=== PATIENT | female | born 1960 | race Caucasian/White ===

== ENCOUNTER 2017-07-08 14:35 | Observation (INO) | payer BC ==
[2017-07-08] MEDS ORDERED: DiphenhydrAMINE 50 mg/ml Inj ONE ×2 (15:03→17:43)
[2017-07-08] MEDS ORDERED: Albuterol 0.083% Inhal Sol (2.5 mg/3 mL) UD ONE (15:13)
[2017-07-08] MEDS ORDERED: DiphenhydrAMINE 50 mg/ml Inj IV STA ×2 (15:15→17:42)
[2017-07-08] MEDS ORDERED: Albuterol 0.083% Inhal Sol (2.5 mg/3 mL) UD INH ONE ×2 (15:15→17:20)
[2017-07-08 15:41] LABS: BASO % 0.4 % (0.0-2.0); EOS # 0.2 K/uL (0.0-0.7); EOS % 2.6 % (0.0-4.0); HEMATOCRIT 44.9 % (34.0-47.0); LYMPH # 2.8 K/uL (1.0-4.3); LYMPH % 29.8 % (20.0-40.0); MEAN CELL VOLUME 87.8 fl (81.0-99.0); MEAN CORPUSCULAR HEMOGLOBIN 29.9 pg (27.0-31.0); MONO # 0.7 K/uL (0.0-0.8); MONO % 7.7 % (0.0-10.0); NEUT # 5.6 K/uL (1.8-7.0); NEUT % 59.5 % (50.0-75.0); NRBC % 0.1 % (0.0-0.0); RED CELL DISTRIBUTION WIDTH 13.3 % (11.5-14.5); WHITE BLOOD COUNT 9.4 K/uL (4.8-10.8)
[2017-07-08 15:54] LABS: ALB/GLOB RATIO 1.1 (1.0-2.1); ALKALINE PHOSPHATASE 206 U/L (38-126); ALT/SGPT 67 U/L (9-52); AST/SGOT 48 U/L (14-36); BILIRUBIN,TOTAL 0.6 mg/dl (0.2-1.3); BLOOD UREA NITROGEN 15 mg/dl (7-17); CALCIUM 9.2 mg/dL (8.4-10.2); CARBON DIOXIDE 26 mmol/L (22-30); CHLORIDE 90 mmol/L (98-107); GFR AFRICAN-AMERICAN > 60; POTASSIUM 4.7 MMOL/L (3.6-5.0); SODIUM 128 mmol/l (132-148); TOTAL PROTEIN 8.4 G/DL (6.3-8.2)
[2017-07-08 16:09] LABS: GLUCOSE,RANDOM 461 mg/dL (65-105)
[2017-07-08] MEDS ORDERED: Sodium Chloride 0.9% 1,000 ML IV STA (16:32)
[2017-07-08] MEDS ORDERED: Insulin Regular 100 units/ml IVP ONE ×2 (16:32→19:13)
--- NOTE | 2017-07-08 17:12 | RAD ---
HISTORY: cough COMPARISON: No prior. TECHNIQUE: Chest PA and lateral FINDINGS: LUNGS: No active pulmonary disease. PLEURA: No significant pleural effusion identified. No pneumothorax apparent. CARDIOVASCULAR: Normal. OSSEOUS STRUCTURES: No significant abnormalities. VISUALIZED UPPER ABDOMEN: Normal. OTHER FINDINGS: None. IMPRESSION: No acute cardiopulmonary disease appreciated.
--- NOTE | 2017-07-08 17:43 | ED PDOC ---
HPI: Allergic Reaction Time Seen by Provider: 07/08/17 15:09 Chief Complaint (Nursing): Abnormal Skin Integrity Chief Complaint (Provider): rash, shortness of breath History Per: Patient History/Exam Limitations: no limitations Onset/Duration Of Symptoms: Hrs (2) Current Symptoms Are (Timing): Still Present Possible Cause: Medication Associated Symptoms: Skin Rash, Dyspnea, Trouble Swallowing, Dizziness, Itching Home/EMS Treatment: None Severity: Moderate Additional Complaint(s): 57yo female states saw PMD on wednesday for cough and bronchitis symptoms, Rx combivent and augmentin. She started combivent without issue, today took augmentin for first time and about an hour later developed rash, shortness of breath and worsening wheeze, discomfort, feeling of mild throat swelling but no change in voice or inability to swallow. Past Medical History Vital Signs: Last Vital Signs Temp 98.8 F 07/08/17 16:33 Pulse 99 H 07/08/17 16:33 Resp 16 07/08/17 16:33 BP 103/59 L 07/08/17 16:33 Pulse Ox 97 07/08/17 16:08 - Medical History PMH: Anxiety, Asthma, Diabetes (Type II), Mitral Valve Prolapse, Pneumonia Denies: HTN - Surgical History Surgical History: (x3) - Family History Family History: Denies: Diabetes - Immunization History Hx Tetanus Toxoid Vaccination: Yes Hx Influenza Vaccination: No Hx Pneumococcal Vaccination: No - Home Medications Home Medications: Ambulatory Orders Medication Instructions Recorded Ciprofloxacin HCl [Cipro] 500 mg PO Q12H 07/04/15 Clindamycin [Cleocin] 300 mg PO TID #21 cap 07/04/15 Insulin Aspart, Recombinant 15 unit SC AC 07/04/15 [Novolog] Insulin Detemir [Levemir] 10 unit SC HS 07/04/15 Metoprolol Tartrate [Lopressor] 50 mg PO HS 07/04/15 Oseltamivir Phosphate [Tamiflu] 75 mg PO BID #10 cap 07/04/15 Venlafaxine [Effexor XR] 75 mg PO HS 07/04/15 - Allergies Allergies/Adverse Reactions: Allergies Allergy/AdvReac Type Severity Reaction Status Date / Time amoxicillin [From Augmentin] Allergy Verified 07/08/17 17:52 clavulanic acid Allergy Verified 07/08/17 17:52 [From Augmentin] iodine Allergy ANAPHYLAXIS Verified 07/08/17 15:12 Sulfa (Sulfonamide Allergy URTICARIA Verified 07/08/17 15:12 Antibiotics) clarithromycin AdvReac RASH Verified 07/08/17 15:12 methylprednisolone AdvReac Verified 07/08/17 15:27 [From Medrol] seafood Allergy ANAPHYLAXIS Uncoded 07/08/17 15:12 Physical Exam - Reviewed Nursing Documentation Reviewed: Yes Vital Signs Reviewed: Yes - Physical Exam Appears: Positive for: Uncomfortable Head Exam: Positive for: ATRAUMATIC, NORMAL INSPECTION, NORMOCEPHALIC Skin: Positive for: Warm, Rash (diffuse erythematous rash to face/neck/chest). Negative for: Jaundice, Cyanosis Eye Exam: Positive for: EOMI, Normal appearance, PERRL ENT: Positive for: Normal ENT Inspection Neck: Positive for: Normal, Painless ROM Cardiovascular/Chest: Positive for: Tachycardia Respiratory: Positive for: Decreased Breath Sounds, Wheezing. Negative for: Respiratory Distress Gastrointestinal/Abdominal: Positive for: Bowel Sounds, Soft. Negative for: Tenderness Back: Positive for: Normal Inspection Extremity: Positive for: Normal ROM. Negative for: Tenderness, Swelling Neurologic/Psych: Positive for: Alert, Oriented. Negative for: Motor/Sensory Deficits - Laboratory Results Result Diagrams: 07/08/17 15:34 07/08/17 15:34 - ECG ECG: Positive for: Interpreted By Me ECG Rhythm: Positive for: Nonspecific Changes Rate: 99 O2 Sat by Pulse Oximetry: 97 Pulse Ox Interpretation: Normal - Radiology X-Ray: Read By Radiologist X-Ray Interpretation: No Acute Disease - Progress ED Course And Treament: Patient stated prior bad reaction to steroids- developed paranoia and sleeplessness, she wants to avoid steroids currently. labs, CXR ordered. Benadryl 50mg, pepcid 20mg and IVF ordered Pt found to be hyperglycemic, insulin therapy initiated, IVF continued 540p remains w itch and rash, lungs w mild wheeze Will admit Dr Phelps given persistent symptoms, failure to improve in ED and inability to use steroids due to prior adverse reaction. - Critical Care Total Time (In Min): 45 Comments: pt required immediate and repeat bedside attention due to acute allergic reaction, SOB and resp distress Disposition - Clinical Impression Clinical Impression: Hyperglycemia, Acute allergic reaction, Asthma exacerbation - Patient ED Disposition Is Patient to be Admitted: Yes Counseled Patient/Family Regarding: Studies Performed, Diagnosis - Disposition Disposition Time: 17:20 Condition: STABLE - Pt Status Changed To: Hospital Disposition Of: Observation - POA Present On Arrival: Poor Glycemic Control
[2017-07-08] MEDS ORDERED: Insulin Regular 100 units/ml ONE (19:27)
[2017-07-08] MEDS ORDERED: Patient's Own Med (Albuterol/Ipratropium [Combivent Respimat] 1 PUFF) IH PRN (22:38)
[2017-07-08] MEDS ORDERED: Venlafaxine 150 mg ER Cap PO SCH (23:00)
[2017-07-08] MEDS ORDERED: Metoprolol Succinate 50 mg XL Tab PO SCH (23:00)
[2017-07-08] MEDS: Insulin Regular 100 units/ml SC SCH (23:33)
[2017-07-09] MEDS ORDERED: Insulin Detemir 100 Units/ml Inj SC SCH (00:30)
[2017-07-09 05:49] LABS: HEMATOCRIT 39.9 % (34.0-47.0); MEAN CELL VOLUME 88.6 fl (81.0-99.0); MEAN CORPUSCULAR HEMOGLOBIN 29.9 pg (27.0-31.0); MEAN CORPUSCULAR HGB CONC 33.8 g/dL (33.0-37.0); RED CELL DISTRIBUTION WIDTH 13.2 % (11.5-14.5); WHITE BLOOD COUNT 12.2 K/uL (4.8-10.8)
[2017-07-09 06:06] LABS: ALB/GLOB RATIO 1.1 (1.0-2.1); ALKALINE PHOSPHATASE 175 U/L (38-126); ALT/SGPT 62 U/L (9-52); AST/SGOT 41 U/L (14-36); BILIRUBIN,TOTAL 0.3 mg/dl (0.2-1.3); BLOOD UREA NITROGEN 18 mg/dl (7-17); CALCIUM 8.9 mg/dL (8.4-10.2); CARBON DIOXIDE 23 mmol/L (22-30); CHLORIDE 100 mmol/L (98-107); CHOLESTEROL 225 mg/dL (0-199); GFR AFRICAN-AMERICAN > 60; GLUCOSE,RANDOM 366 mg/dL (65-105); POTASSIUM 4.6 MMOL/L (3.6-5.0); SODIUM 132 mmol/l (132-148); TOTAL PROTEIN 7.2 G/DL (6.3-8.2)
[2017-07-09 06:31] LABS: THYROID STIMULATING HORMONE 0.45 mIU/ML (0.46-4.68)
[2017-07-09] MEDS: Insulin Regular 100 units/ml SC SCH ×3 (07:10→17:12)
[2017-07-09] MEDS ORDERED: levoFLOXacin 500 MG TAB PO SCH (09:00)
[2017-07-09] MEDS ORDERED: Enoxaparin 40 mg Syringe SC SCH (09:00)
[2017-07-09] MEDS: Insulin Lispro (humaLOG) 100 Units/ml Inj SC SCH ×3 (09:16→17:11)
--- NOTE | 2017-07-09 09:30 | CP.PCM.HP ---
History of Present Illness - History of Present Illness History of Present Illness: 57 year old female admitted due to allergic reaction after taking Augmentin, had rash on neck and upper back, with shortness of breath and worsening wheeze, discomfort, feeling of mild throat swelling. She is feeling much better this morning. Does not have any rash, difficulty breathing or throat complaints. Noted to be hyperglycemic on admission. 12 point review of systems negative except as above. PMH: DM, anxiety Medications reviewed Allergies reviewed Present on Admission - Present on Admission Any Indicators Present on Admission: Yes History of Uncontrolled Diabetes: Yes Past Patient History - Infectious Disease Hx of Infectious Diseases: None - Past Medical History & Family History Past Medical History?: Yes - Past Social History Smoking Status: Never Smoked - CARDIAC Hx Heart Murmur: Yes Hx Mitral Valve Prolapse: Yes - PULMONARY Hx Asthma: Yes Hx Pneumonia: Yes - NEUROLOGICAL Other/Comment: diabetic neuropathy - HEENT Hx HEENT Problems: No - RENAL Hx Chronic Kidney Disease: No - ENDOCRINE/METABOLIC Hx Endocrine Disorders: Yes Hx Diabetes Mellitus Type 1: Yes - HEMATOLOGICAL/ONCOLOGICAL Hx Blood Disorders: No Hx AIDS: No Hx Human Immunodeficiency Virus (HIV): No - INTEGUMENTARY Hx Dermatological Problems: No - MUSCULOSKELETAL/RHEUMATOLOGICAL Hx Falls: No - GASTROINTESTINAL Hx Gastrointestinal Disorders: No - GENITOURINARY/GYNECOLOGICAL Hx Urinary Tract Infection: Yes - PSYCHIATRIC Hx Anxiety: Yes Hx Substance Use: No - SURGICAL HISTORY Hx Section: Yes - ANESTHESIA Hx Anesthesia: Yes Hx Anesthesia Reactions: No Hx Malignant Hyperthermia: No Has any member of the family had a problem w/ anesthesia?: No Meds Home Medications: Home Medication List Medication Instructions Recorded Confirmed Type DiphenhydrAMINE [Benadryl] 50 mg PO Q8 #14 cap 07/09/17 Rx Allergies/Adverse Reactions: Allergies Allergy/AdvReac Type Severity Reaction Status Date / Time amoxicillin [From Augmentin] Allergy Verified 07/08/17 17:52 clavulanic acid Allergy Verified 07/08/17 17:52 [From Augmentin] iodine Allergy ANAPHYLAXIS Verified 07/08/17 15:12 Sulfa (Sulfonamide Allergy URTICARIA Verified 07/08/17 15:12 Antibiotics) clarithromycin AdvReac RASH Verified 07/08/17 15:12 methylprednisolone AdvReac Verified 07/08/17 15:27 [From Medrol] seafood Allergy ANAPHYLAXIS Uncoded 07/08/17 15:12 Physical Exam - Constitutional Appears: Well - Head Exam Head Exam: ATRAUMATIC, NORMAL INSPECTION, NORMOCEPHALIC - Eye Exam Eye Exam: EOMI, Normal appearance, PERRL - Respiratory Exam Respiratory Exam: Clear to Auscultation Bilateral, NORMAL BREATHING PATTERN - Cardiovascular Exam Cardiovascular Exam: REGULAR RHYTHM, +S1, +S2 - GI/Abdominal Exam GI & Abdominal Exam: Normal Bowel Sounds, Soft. absent: Tenderness - Extremities Exam Extremities exam: Positive for: normal inspection - Back Exam Back exam: NORMAL INSPECTION - Neurological Exam Neurological exam: Alert, CN II-XII Intact, Normal Gait, Oriented x3, Reflexes Normal - Psychiatric Exam Psychiatric exam: Normal Affect, Normal Mood - Skin Skin Exam: Dry, Intact, Normal Color, Warm Results - Vital Signs Recent Vital Signs: Last Vital Signs Temp 97.8 F 07/09/17 08:00 Pulse 73 07/09/17 08:00 Resp 20 07/09/17 08:00 BP 98/65 L 07/09/17 08:00 Pulse Ox 98 07/09/17 08:00 - Labs Result Diagrams: 07/09/17 04:47 07/09/17 04:47 Labs: Laboratory Results - last 24 hr 07/08/17 07/08/17 07/08/17 15:34 15:34 22:00 WBC 9.4 D RBC 5.11 Hgb 15.3 Hct 44.9 MCV 87.8 MCH 29.9 MCHC 34.0 RDW 13.3 Plt Count 191 MPV 10.0 Neut % (Auto) 59.5 Lymph % (Auto) 29.8 [place] % (Auto) 7.7 Eos % (Auto) 2.6 Baso % (Auto) 0.4 Neut # 5.6 Lymph # 2.8 [place] # 0.7 Eos # 0.2 Baso # 0.0 Sodium 128 L Potassium 4.7 Chloride 90 L Carbon Dioxide 26 Anion Gap 17 BUN 15 Creatinine 0.7 Est GFR ( Amer) > 60 Est GFR (Non-Af Amer) > 60 POC Glucose (mg/dL) 382 H Random Glucose 461 H* D Calcium 9.2 Total Bilirubin 0.6 AST 48 H ALT 67 H D Alkaline Phosphatase 206 H Troponin I < 0.0120 NT-Pro-B Natriuret Pep 45.8 Total Protein 8.4 H Albumin 4.4 Globulin 4.0 H Albumin/Globulin Ratio 1.1 Triglycerides Cholesterol LDL Cholesterol Direct HDL Cholesterol Vitamin B12 TSH 3rd Generation 07/09/17 07/09/17 07/09/17 04:47 04:47 05:28 WBC 12.2 H RBC 4.50 Hgb 13.5 Hct 39.9 MCV 88.6 MCH 29.9 MCHC 33.8 RDW 13.2 Plt Count 158 MPV Neut % (Auto) Lymph % (Auto) [place] % (Auto) Eos % (Auto) Baso % (Auto) Neut # Lymph # [place] # Eos # Baso # Sodium 132 Potassium 4.6 Chloride 100 Carbon Dioxide 23 Anion Gap 14 BUN 18 H Creatinine 0.6 L Est GFR ( Amer) > 60 Est GFR (Non-Af Amer) > 60 POC Glucose (mg/dL) 303 H Random Glucose 366 H Calcium 8.9 Total Bilirubin 0.3 AST 41 H ALT 62 H Alkaline Phosphatase 175 H Troponin I NT-Pro-B Natriuret Pep Total Protein 7.2 Albumin 3.7 Globulin 3.4 Albumin/Globulin Ratio 1.1 Triglycerides 111 Cholesterol 225 H LDL Cholesterol Direct 154 H HDL Cholesterol 45 Vitamin B12 546 TSH 3rd Generation 0.45 L Assessment & Plan - Assessment and Plan (Free Text) Assessment: 57 year old female with hx of DM and anxiety presented after having allergic reaction after taking augmentin. Patients symptoms have resolved. No rash, shortness of breath or wheezing. She had EKG done in ED, that was abnormal. Echo was ordered. EF WNL She is to be evaluated by cardiology. If cleared by cardiology she can be discharged home. #Allergic reaction #Insulin dependent diabetes #DVT PPx -bendryl PRN -pt would like to avoid steriods -insulin sliding scale, accucheck -lovenox
--- NOTE | 2017-07-09 11:55 | CARD ---
APPROVED REPORT EXAM: Two-dimensional and M-mode echocardiogram with Doppler and color Doppler. Other Information Quality : GoodRhythm : NSR INDICATION Abnormal EKG/Arrhythmia 2D DIMENSIONS IVSd1.03 (0.7-1.1cm)LVDd3.65 (3.9-5.9cm) LVOT Diameter1.83 (1.8-2.4cm)PWd0.80 (0.7-1.1cm) IVSs1.12 (0.8-1.2cm)LVDs2.55 (2.5-4.0cm) FS (%) 30.1 %PWs1.09 (0.8-1.2cm) M-Mode DIMENSIONS Left Atrium (MM)4.38 (2.5-4.0cm)IVSd0.97 (0.7-1.1cm) Aortic Root3.12 (2.2-3.7cm)LVDd4.50 (4.0-5.6cm) Aortic Cusp Exc.1.79 (1.5-2.0cm)PWd1.09 (0.7-1.1cm) IVSs1.47 cmFS (%) 33 % LVDs3.00 (2.0-3.8cm)PWs1.18 cm Mitral Valve MV E Sgbtavqs65.1cm/sMV DECEL [id number] A Vfoexkjq49.2cm/s MV END38zcV/A ratio1.0MVA (PHT)2.82cm2 TDI Lateral E' Peak V11.49cm/sMedial E' Peak V7.25cm/sE/Lateral E'7.4 E/Medial E'11.7 LEFT VENTRICLE The left ventricle is normal size. There is normal left ventricular wall thickness. The left ventricular function is normal. The left ventricular ejection fraction is 55% There is normal LV segmental wall motion. The left ventricular diastolic function is normal. No left ventricle thrombus noted on this study. There is no ventricular septal defect visualized. There is no left ventricular aneurysm. There is no mass noted in the left ventricle. RIGHT VENTRICLE The right ventricle is normal size. There is normal right ventricular wall thickness. The right ventricular systolic function is normal. ATRIA The left atrium size is normal. The right atrium size is normal. The interatrial septum is intact with no evidence for an atrial septal defect. AORTIC VALVE The aortic valve is normal in structure. There is trace aortic regurgitation. There is no aortic valvular stenosis. There is no aortic valvular vegetation. MITRAL VALVE The mitral valve is normal in structure. There is no evidence of mitral valve prolapse. There is no mitral valve stenosis. There is no mitral valve regurgitation noted. TRICUSPID VALVE The tricuspid valve is normal in structure. There is no tricuspid valve regurgitation noted. There is no tricuspid valve prolapse or vegetation. There is no tricuspid valve stenosis. PULMONIC VALVE The pulmonary valve is normal in structure. There is no pulmonic valvular regurgitation. There is no pulmonic valvular stenosis. GREAT VESSELS The aortic root is normal in size. The ascending aorta is normal in size. The IVC is normal in size and collapses >50% with inspiration. PERICARDIAL EFFUSION The pericardium appears normal. There is no pleural effusion. <Conclusion> Normal LV systolic function Trace Aortic and Mitral Regurgitation
[2017-07-09 15:37] VITALS: BP 105/70; PULSE 71; RESP 16; TEMP 98.3; O2SAT 100
--- NOTE | 2017-07-09 17:44 | CARD ---
APPROVED REPORT EKG Measurement Heart [id number] [place] [id number] [id number] POc198 <Conclusion> Normal sinus rhythm Septal infarct, age undetermined Abnormal ECG
--- NOTE | 2017-07-09 18:48 | CP.PCM.CON ---
History of Present Illness - History of Present Illness History of Present Illness: Patient seen/examined full consutl to follow. History of diabetes HTN who presnts with dyspnea, asthamatic reaction. currently on antibiotics. EKG shows septal infarct pattern. The patient denies current chest pain. Echo reveals normal left ventricular function. Recommend continued antibiotic therapy. will schedule outpatient stress test Past Patient History - Infectious Disease Hx of Infectious Diseases: None - Past Medical History & Family History Past Medical History?: Yes - Past Social History Smoking Status: Never Smoked - CARDIAC Hx Heart Murmur: Yes Hx Mitral Valve Prolapse: Yes - PULMONARY Hx Asthma: Yes Hx Pneumonia: Yes - NEUROLOGICAL Other/Comment: diabetic neuropathy - HEENT Hx HEENT Problems: No - RENAL Hx Chronic Kidney Disease: No - ENDOCRINE/METABOLIC Hx Endocrine Disorders: Yes Hx Diabetes Mellitus Type 1: Yes - HEMATOLOGICAL/ONCOLOGICAL Hx Blood Disorders: No Hx AIDS: No Hx Human Immunodeficiency Virus (HIV): No - INTEGUMENTARY Hx Dermatological Problems: No - MUSCULOSKELETAL/RHEUMATOLOGICAL Hx Falls: No - GASTROINTESTINAL Hx Gastrointestinal Disorders: No - GENITOURINARY/GYNECOLOGICAL Hx Urinary Tract Infection: Yes - PSYCHIATRIC Hx Anxiety: Yes Hx Substance Use: No - SURGICAL HISTORY Hx Section: Yes - ANESTHESIA Hx Anesthesia: Yes Hx Anesthesia Reactions: No Hx Malignant Hyperthermia: No Has any member of the family had a problem w/ anesthesia?: No Meds Home Medications: Home Medication List Medication Instructions Recorded Confirmed Type DiphenhydrAMINE [Benadryl] 50 mg PO Q8 #14 cap 07/09/17 Rx Allergies/Adverse Reactions: Allergies Allergy/AdvReac Type Severity Reaction Status Date / Time amoxicillin [From Augmentin] Allergy Verified 07/08/17 17:52 clavulanic acid Allergy Verified 07/08/17 17:52 [From Augmentin] iodine Allergy ANAPHYLAXIS Verified 07/08/17 15:12 Sulfa (Sulfonamide Allergy URTICARIA Verified 07/08/17 15:12 Antibiotics) clarithromycin AdvReac RASH Verified 07/08/17 15:12 methylprednisolone AdvReac Verified 07/08/17 15:27 [From Medrol] seafood Allergy ANAPHYLAXIS Uncoded 07/08/17 15:12 - Medications Medications: Current Medications Acetaminophen (Tylenol 325mg Tab) 650 mg PO Q6 PRN PRN Reason: Headache Last Admin: 07/09/17 12:09 Dose: 650 mg Enoxaparin Sodium (Lovenox) 40 mg SC DAILY [facility] PRN Reason: Protocol Last Admin: 07/09/17 09:17 Dose: 40 mg Home Med (Albuterol/Ipratropium [Combivent Respimat]) 1 puff IH Q6H PRN PRN Reason: Shortness of Breath Insulin Detemir (Levemir) 20 units SC [facility] Last Admin: 07/08/17 23:00 Dose: 20 units Insulin Human Lispro (Humalog) 20 units SC [facility] Last Admin: 07/09/17 17:11 Dose: 20 units Insulin Human Regular (Humulin R) 0 units SC ACCU-CHECK [facility] PRN Reason: Protocol Last Admin: 07/09/17 17:12 Dose: Not Given Levofloxacin (Levaquin) 500 mg PO DAILY [facility] Last Admin: 07/09/17 09:17 Dose: 500 mg Metoprolol Succinate (Toprol Xl) 50 mg PO [facility] Last Admin: 07/08/17 23:35 Dose: 50 mg Venlafaxine HCl (Effexor Xr) 150 mg PO [facility] Last Admin: 07/08/17 23:35 Dose: 150 mg Results - Vital Signs Recent Vital Signs: Last Vital Signs Temp 98.3 F 07/09/17 15:52 Pulse 71 07/09/17 15:52 Resp 16 07/09/17 15:52 BP 105/70 07/09/17 15:52 Pulse Ox 100 07/09/17 15:52 - Labs Result Diagrams: 07/09/17 04:47 07/09/17 04:47 Labs: Laboratory Results - last 24 hr 07/08/17 07/08/17 07/09/17 16:29 22:00 04:47 WBC 12.2 H RBC 4.50 Hgb 13.5 Hct 39.9 MCV 88.6 MCH 29.9 MCHC 33.8 RDW 13.2 Plt Count 158 Sodium Potassium Chloride Carbon Dioxide Anion Gap BUN Creatinine Est GFR ( Amer) Est GFR (Non-Af Amer) POC Glucose (mg/dL) 403 H* 382 H Random Glucose Hemoglobin A1c Calcium Total Bilirubin AST ALT Alkaline Phosphatase Total Protein Albumin Globulin Albumin/Globulin Ratio Triglycerides Cholesterol LDL Cholesterol Direct HDL Cholesterol Vitamin B12 TSH 3rd Generation 07/09/17 07/09/17 07/09/17 04:47 04:47 05:28 WBC RBC Hgb Hct MCV MCH MCHC RDW Plt Count Sodium 132 Potassium 4.6 Chloride 100 Carbon Dioxide 23 Anion Gap 14 BUN 18 H Creatinine 0.6 L Est GFR ( Amer) > 60 Est GFR (Non-Af Amer) > 60 POC Glucose (mg/dL) 303 H Random Glucose 366 H Hemoglobin A1c 13.2 H Calcium 8.9 Total Bilirubin 0.3 AST 41 H ALT 62 H Alkaline Phosphatase 175 H Total Protein 7.2 Albumin 3.7 Globulin 3.4 Albumin/Globulin Ratio 1.1 Triglycerides 111 Cholesterol 225 H LDL Cholesterol Direct 154 H HDL Cholesterol 45 Vitamin B12 546 TSH 3rd Generation 0.45 L 07/09/17 07/09/17 10:54 15:58 WBC RBC Hgb Hct MCV MCH MCHC RDW Plt Count Sodium Potassium Chloride Carbon Dioxide Anion Gap BUN Creatinine Est GFR ( Amer) Est GFR (Non-Af Amer) POC Glucose (mg/dL) 346 H 102 Random Glucose Hemoglobin A1c Calcium Total Bilirubin AST ALT Alkaline Phosphatase Total Protein Albumin Globulin Albumin/Globulin Ratio Triglycerides Cholesterol LDL Cholesterol Direct HDL Cholesterol Vitamin B12 TSH 3rd Generation
--- NOTE | 2017-07-09 18:49 | CP.PCM.CON ---
Past Patient History - Infectious Disease Hx of Infectious Diseases: None - Past Medical History & Family History Past Medical History?: Yes - Past Social History Smoking Status: Never Smoked - CARDIAC Hx Heart Murmur: Yes Hx Mitral Valve Prolapse: Yes - PULMONARY Hx Asthma: Yes Hx Pneumonia: Yes - NEUROLOGICAL Other/Comment: diabetic neuropathy - HEENT Hx HEENT Problems: No - RENAL Hx Chronic Kidney Disease: No - ENDOCRINE/METABOLIC Hx Endocrine Disorders: Yes Hx Diabetes Mellitus Type 1: Yes - HEMATOLOGICAL/ONCOLOGICAL Hx Blood Disorders: No Hx AIDS: No Hx Human Immunodeficiency Virus (HIV): No - INTEGUMENTARY Hx Dermatological Problems: No - MUSCULOSKELETAL/RHEUMATOLOGICAL Hx Falls: No - GASTROINTESTINAL Hx Gastrointestinal Disorders: No - GENITOURINARY/GYNECOLOGICAL Hx Urinary Tract Infection: Yes - PSYCHIATRIC Hx Anxiety: Yes Hx Substance Use: No - SURGICAL HISTORY Hx Section: Yes - ANESTHESIA Hx Anesthesia: Yes Hx Anesthesia Reactions: No Hx Malignant Hyperthermia: No Has any member of the family had a problem w/ anesthesia?: No Meds Home Medications: Home Medication List Medication Instructions Recorded Confirmed Type DiphenhydrAMINE [Benadryl] 50 mg PO Q8 #14 cap 07/09/17 Rx Allergies/Adverse Reactions: Allergies Allergy/AdvReac Type Severity Reaction Status Date / Time amoxicillin [From Augmentin] Allergy Verified 07/08/17 17:52 clavulanic acid Allergy Verified 07/08/17 17:52 [From Augmentin] iodine Allergy ANAPHYLAXIS Verified 07/08/17 15:12 Sulfa (Sulfonamide Allergy URTICARIA Verified 07/08/17 15:12 Antibiotics) clarithromycin AdvReac RASH Verified 07/08/17 15:12 methylprednisolone AdvReac Verified 07/08/17 15:27 [From Medrol] seafood Allergy ANAPHYLAXIS Uncoded 07/08/17 15:12 - Medications Medications: Current Medications Acetaminophen (Tylenol 325mg Tab) 650 mg PO Q6 PRN PRN Reason: Headache Last Admin: 07/09/17 12:09 Dose: 650 mg Enoxaparin Sodium (Lovenox) 40 mg SC DAILY [facility] PRN Reason: Protocol Last Admin: 07/09/17 09:17 Dose: 40 mg Home Med (Albuterol/Ipratropium [Combivent Respimat]) 1 puff IH Q6H PRN PRN Reason: Shortness of Breath Insulin Detemir (Levemir) 20 units SC HS [facility] Last Admin: 07/08/17 23:00 Dose: 20 units Insulin Human Lispro (Humalog) 20 units SC [facility] Last Admin: 07/09/17 17:11 Dose: 20 units Insulin Human Regular (Humulin R) 0 units SC ACCU-CHECK [facility] PRN Reason: Protocol Last Admin: 07/09/17 17:12 Dose: Not Given Levofloxacin (Levaquin) 500 mg PO DAILY [facility] Last Admin: 07/09/17 09:17 Dose: 500 mg Metoprolol Succinate (Toprol Xl) 50 mg PO [facility] Last Admin: 07/08/17 23:35 Dose: 50 mg Venlafaxine HCl (Effexor Xr) 150 mg PO [facility] Last Admin: 07/08/17 23:35 Dose: 150 mg Results - Vital Signs Recent Vital Signs: Last Vital Signs Temp 98.3 F 07/09/17 15:52 Pulse 71 07/09/17 15:52 Resp 16 07/09/17 15:52 BP 105/70 07/09/17 15:52 Pulse Ox 100 07/09/17 15:52 - Labs Result Diagrams: 07/09/17 04:47 07/09/17 04:47 Labs: Laboratory Results - last 24 hr 07/08/17 07/08/17 07/09/17 16:29 22:00 04:47 WBC 12.2 H RBC 4.50 Hgb 13.5 Hct 39.9 MCV 88.6 MCH 29.9 MCHC 33.8 RDW 13.2 Plt Count 158 Sodium Potassium Chloride Carbon Dioxide Anion Gap BUN Creatinine Est GFR ( Amer) Est GFR (Non-Af Amer) POC Glucose (mg/dL) 403 H* 382 H Random Glucose Hemoglobin A1c Calcium Total Bilirubin AST ALT Alkaline Phosphatase Total Protein Albumin Globulin Albumin/Globulin Ratio Triglycerides Cholesterol LDL Cholesterol Direct HDL Cholesterol Vitamin B12 TSH 3rd Generation 07/09/17 07/09/17 07/09/17 04:47 04:47 05:28 WBC RBC Hgb Hct MCV MCH MCHC RDW Plt Count Sodium 132 Potassium 4.6 Chloride 100 Carbon Dioxide 23 Anion Gap 14 BUN 18 H Creatinine 0.6 L Est GFR ( Amer) > 60 Est GFR (Non-Af Amer) > 60 POC Glucose (mg/dL) 303 H Random Glucose 366 H Hemoglobin A1c 13.2 H Calcium 8.9 Total Bilirubin 0.3 AST 41 H ALT 62 H Alkaline Phosphatase 175 H Total Protein 7.2 Albumin 3.7 Globulin 3.4 Albumin/Globulin Ratio 1.1 Triglycerides 111 Cholesterol 225 H LDL Cholesterol Direct 154 H HDL Cholesterol 45 Vitamin B12 546 TSH 3rd Generation 0.45 L 07/09/17 07/09/17 10:54 15:58 WBC RBC Hgb Hct MCV MCH MCHC RDW Plt Count Sodium Potassium Chloride Carbon Dioxide Anion Gap BUN Creatinine Est GFR ( Amer) Est GFR (Non-Af Amer) POC Glucose (mg/dL) 346 H 102 Random Glucose Hemoglobin A1c Calcium Total Bilirubin AST ALT Alkaline Phosphatase Total Protein Albumin Globulin Albumin/Globulin Ratio Triglycerides Cholesterol LDL Cholesterol Direct HDL Cholesterol Vitamin B12 TSH 3rd Generation
== END 2017-07-09 19:30 | disposition home or self-care (01) ==
LOC: H.ER 14:35 → H.ERHOLD 17:42 → H.TEL 21:29 → INTOOBSV 07-09 15:20 → OBSVTOIN 07-09 15:20
PROVIDERS: ADMIT Internal Medicine; ATTEND Internal Medicine
DX: L27.0 Generalized skin eruption due to drugs and medicaments taken internally (principal); E11.40 Type 2 diabetes mellitus with diabetic neuropathy, unspecified; J45.901 Unspecified asthma with (acute) exacerbation; E11.65 Type 2 diabetes mellitus with hyperglycemia; I10 Essential (primary) hypertension; I34.1 Nonrheumatic mitral (valve) prolapse; J40 Bronchitis, not specified as acute or chronic; Z79.4 Long term (current) use of insulin; Z79.899 Other long term (current) drug therapy; Z87.01 Personal history of pneumonia (recurrent); Z87.440 Personal history of urinary (tract) infections; Z88.0 Allergy status to penicillin; F41.9 Anxiety disorder, unspecified; R01.1 Cardiac murmur, unspecified; R21 Rash and other nonspecific skin eruption; T36.0X5A Adverse effect of penicillins, initial encounter
CPT/HCPCS: 36415; 71020; 80053; 80061; 82607; 82948; 83036; 83880; 84443; 84484; 85025; 85027; 93005; 93306; 94640; 96374; 96375; 96376; 99285; G0378; J1200; J1650; J7040